=== PATIENT | female | born 1965 | race Caucasian/White ===

== ENCOUNTER → 2017-12-07 07:38 | Outpatient (CLI) | payer MEDICAID ==
[~2017-12-07] VITALS: Ht 165.1 cm; Wt 69.1 kg
--- NOTE | ~2017-12-07 | OP ---
PATIENT NAME: CATHERINE DHALIWAL MEDICAL RECORD: [id number] :61 LOCATION:D.CAT ADMISSION DATE: SURGEON: MARCELL JOHNSON MD DATE OF OPERATION: 12/07/2017 PROCEDURES: 1. PTCA and stent of LAD. 2. Left heart catheterization. 3. Selective coronary angiography. 4. Left ventriculogram. INDICATION: Angina and coronary artery disease. PROCEDURE IN DETAIL: After informed consent was obtained and after detailed explanation of risks, benefits as well as alternative therapies, the patient elected to proceed with angiogram and angioplasty. The right femoral area was prepped and draped in normal sterile fashion. The right femoral artery was cannulated via modified Seldinger technique with placement of 6-[place] Zealander sheath. All catheters exchanged through this sheath. FINDINGS: The left ventriculogram was performed in standard 30-degree LYONS view, reveals good cardiac wall motion throughout all segments. Overall ejection fraction estimated 60%. SELECTIVE CORONARY ANGIOGRAPHY: 1. Left main showed no significant angiographic disease. 2. Left anterior descending has 80% stenosis proximally. 3. Left circumflex has mild irregularities, but no flow-limiting stenosis. 4. Right coronary has mild irregularities, but no flow-limiting stenosis. PTCA AND STENT OF THE LAD: The stent used was a 2.25 x 8 mm Jeison. Result was 0% residual stenosis. OVERALL IMPRESSION: Successful PTCA and stent of the LAD going from 80% initial stenosis to 0% residual. TRANSINT:[id number] Voice Confirmation ID: [id number] DOCUMENT ID: [id number] MARCELL JOHNSON MD at 1202 CC: [id number] DICTATION DATE: 12/07/17 1121 SURGICAL TECH: 12/07/17 1225 DEP CLI 12/07/17 [place] [id number]
--- NOTE | ~2017-12-07 | HEMODYNAMI ---
PATIENT:CATHERINE DHLAIWAL MEDICAL RECORD: [id number] : 61 LOCATION:[facility]ANIELL[facility] ADMISSION DATE: 12/07/17 Generatedon:12/07/201711:28 Patient name: CATHERINE DHALIWAL Patient #: [id number] SSN: : 1965 Date of study: 12/07/2017 Page: Of Hemodynamic Procedure Report Patient Data Patient Demographics Procedure consent was obtained First Name: CATHERINE Gender: Female Last Name: ISRA : 1965 Patient #: [id number] Age: 52 year(s) Race: Unknown Additional ID: [id number] Contact details [address]: [address] [place] [address] State: [place] City: [place] Zip code: [address] Past Medical History Allergies Allergen Reaction Date Comments Reported Other allergy 12/07/2017 latex Admission Admission Data Admission Date: 12/07/2017 Admission Time: 7:38 Admit Source: Other Procedure Procedure Types Cath Procedure Diagnostic Procedure LHC LHC w/Coronaries PCI Procedure Coronary Stent Coronary Stent Initial Procedure Description Procedure Date Procedure Date: 12/07/2017 Procedure Start Time: 10:54 Procedure End Time: 11:28 Procedure Staff Name Function Mayank Hickey MD Performing Physician Ilya Gates RT Monitor Jordan Waldrop RT Scrub Antonio Bains RN Nurse Procedure Data Cath Procedure Fluoroscopy Diagnostic fluoroscopy Total fluoroscopy Time: 5 time: 5 min min Diagnostic fluoroscopy Total fluoroscopy dose: 237 dose: 237 mGy mGy Contrast Material Contrast Material Type Amount (ml) Isovue 300 71 Entry Location Entry Primary Successful Side Size Upsize Upsize Entry Closure Succes sful Closure Location (Fr) 1 (Fr) 2 (Fr) Remarks Device Remarks Femoral Right 5 Fr vein Femoral Right 5 Fr 6 Fr Exoseal artery Short Estimated blood loss: 10 ml Diagnostic catheters Device Type Used For End Catheter Placement MULTIPACK Pigtail 5 Fr Procedure catheter MULTIPACK JL 4.0 5Fr Procedure catheter MULTIPACK 3DRC 5Fr Procedure catheter Procedure Complications No complications Procedure Medications Medication Administration Route Dosage Oxygen NC 2 l/min Heparin Flush Bag added to field 2 bags (1000units/500ml NS) 0.9% NaCl I.V. 100 ml/hr Fentanyl I.V. 50 mcg Versed I.V. 1 mg Fentanyl I.V. 50 mcg Versed I.V. 1 mg Heparin Bolus I.V. 4000 units Benadryl I.V. 50 mg Hemodynamics Rest Heart Rate: 63 (bpm) Snapshots Pre Cath Intra NCS Post Cath Vital Signs Time Heart Resp SPO2 etCO2 NIBP (mmHg) Rhythm Pain Sedation Rate (ipm) (%) (mmHg) Status Level (bpm) 10:51:17 72 15 99 0 148/84(119) NSR 0 (11) 10(A) , No pain 10:55:41 71 18 98 0 131/79(114) NSR 0 (11) 10(A) , No pain 11:00:01 67 18 100 41.6 128/87(102) NSR 0 (11) 10(A) , No pain 11:04:17 73 17 100 34 138/90(114) NSR 0 (11) 10(A) , No pain 11:08:40 80 16 100 0 140/88(113) NSR 0 (11) 9(A) , No pain 11:13:02 83 16 100 0 146/86(120) NSR 0 (11) 9(A) , No pain 11:17:18 84 15 100 0 136/88(111) NSR 0 (11) 9(A) , No pain 11:21:38 83 16 100 0 134/89(107) NSR 0 (11) 9(A) , No pain 11:25:58 74 16 100 12.8 139/88(109) NSR 0 (11) 9(A) , No pain Medications Time Medication Route Dose Verified Delivered Reason Notes Effectiveness by by 10:58:45 Oxygen NC 2 Mayank Alvarez Per physician l/min Ruperto Bains RN 10:58:54 Heparin Flush added 2 Mayank Alvarez used for Bag to bags Ruperto Bains freight router (1000units/500ml field NS) 11:04:19 0.9% NaCl I.V. 100 Mayank Alvarez Per physician ml/hr Ruperto Bains RN 11:04:26 Fentanyl I.V. 50 Mayank Alvarez for sedation mcg Ruperto Bains RN 11:04:35 Benadryl I.V. 50 mg Mayank Alvarez Per physician Ruperto Bains RN 11:04:50 Versed I.V. 1 mg Mayank Alvarez for sedation Ruperto Bains RN 11:11:39 Fentanyl I.V. 50 Mayank Alvarez for sedation [facility] [place] Ruperto Bains RN 11:11:44 Versed I.V. 1 mg Mayank Alvarez for sedation Ruperto Bains RN 11:11:54 Heparin Bolus I.V. 4000 Mayank Alvarez for units Ruperto Bains RN anticoagulation Procedure Log Time Note 10:13:39 Jordan Waldrop RT(R) sent for patient. Start room use. 10:18:18 Informed consent obtained and on chart 10:18:20 Admit Source: Other 10:18:38 Diagnostic Cath status Elective 10:18:40 Time tracking: Regular hours 10:18:43 Plan of Care:Hemodynamics will remain stable., Cardiac rhythm will remain stable., Comfort level will be maintained., Respiratory function will remain adequate., Patient/ family verbilizes understanding of procedure., Procedure tolerated without complication., Recovers from procedure without complications.. 10:28:42 Patient received from Pre/Post Procedure Room to CCL 3 Alert and oriented. Tansferred to table in Supine position. 10:28:43 Warm blankets applied, and amarilis hugger turned on for patient comfort. 10:28:43 Correct patient and procedure confirmed by team. 10:28:44 ECG and BP/O2 sat monitors applied to patient. 10:28:46 Pre-procedure instructions explained to patient. 10:28:47 Pre-op teaching completed and patient verbalized understanding. 10:28:48 Family in waiting room. 10:28:49 Patient NPO since Midnight. 10:28:57 Patient allergic to Other allergylatex 10:28:59 Is the patient allergic to Iodine/contrast media? No. 10:29:00 Is patient on blood thinner?Yes 10:29:02 ACC The patient was administered the following blood thiners within the last 24 hours: ACCPlavix 10:29:04 Patient diabetic? No. 10:29:07 Previous problem with sedation/anesthesia? No ? 10:29:07 Snore? Yes 10:29:08 Sleep apnea? No 10:29:10 Deviated septum? No 10:29:10 Opens mouth fully? Yes 10:29:11 Sticks out tongue? Yes 10:29:12 Airway obstruction? No ? 10:29:17 Dentures? Yes partial in tight 10:49:18 Pre procedure: right dorsailis pedis pulse 1+ Palpable, but thready & weak; easily obliterated 10:49:22 Patient pain scale 0/10 ?. 10:49:56 Vital chart was started 10:50:38 Unable to gain IV access, Dr Hickey is going to start access is right femoral vein for IV acess. 10:50:48 Lab results completed and on chart. 10:50:52 Right groin area was prepped with chlora-prep and draped in sterile fashion 10:50:53 Alarms reviewed by R. N. 10:50:54 Sharps counted by scrub and verified by R.N. 10:50:55 --------ALL STOP TIME OUT------ 10:50:55 Final Timeout: patient, procedure, and site verified with staff and physician. All members of the team are in agreement. 10:50:59 Right groin site verified by team. 10:51:01 Physical assessment completed. ASA score P 2 - A patient with mild systemic disease as per Mayank Hickey MD. 10:51:04 Sedation plan: IV Moderate Sedation Medication:Versed, Fentanyl 10:53:12 Baseline sample Acquired. 10:53:16 Rhythm: sinus rhythm 10:53:17 Full Disclosure recording started 10:53:31 H&P Date Dictated: 11/29/2017 Within 30 days and on chart., H&P Addendum completed by physician on day of procedure. (MUST COMPLETE FOR ALL OUTPATIENTS). 10:54:09 Procedure started. 10:54:13 Local anesthetic to right femoral artery with Lidocaine 1% by Mayank Hickey MD.INITIAL ACCESS ONLY 10:54:57 Use device set Femoral Dx 10:55:00 Tegaderm 4 x 4 (1626W) opened to sterile field. 10:55:01 ACIST Manifold (76305) opened to sterile field. 10:55:02 ACIST Hand Control (13839) opened to sterile field. 10:55:04 ACIST Syringe (07716) opened to sterile field. 10:55:04 Bag Decanter (2002S) opened to sterile field. 10:55:04 Medline Cath Pack ([id number]) opened to sterile field. 10:55:20 SHEATH 5FR Luther (FLC996) opened to sterile field. 10:55:21 DIAGNOSTIC WIRE .035 260cm J wire (394997) opened to sterile field. 10:55:22 DIAGNOSTIC Multipack 5Fr catheter set (AI1330) opened to sterile field. 10:55:23 PERCUTANEOUS ENTRY 19GA needle opened to sterile field. 10:55:35 SHEATH 5FR Luther (VQF817) opened to sterile field. 10:55:36 MAGIC TORQUE 180cm 0.035 wire ([id number]) opened to sterile field. 10:56:04 Magic Torque wire used to help gain access. 10:56:13 IV Extension Set opened to sterile field. 10:56:13 IV Extension Set opened to sterile field. 10:56:21 TORQUE DEVICE PLASTIC .038 ( TD01) opened to sterile field. 10:58:45 Oxygen 2 l/min NC was administered by Antonio Bains RN; Per physician; 10:58:54 Heparin Flush Bag (1000units/500ml NS) 2 bags added to field was administered by Antonio Bains RN; used for procedure; 11:01:14 A 5 Fr sheath was inserted into the Right Femoral vein 11:04:19 0.9% NaCl 100 ml/hr I.V. was administered by Antonio Bains RN; Per physician; 11:04:26 Fentanyl 50 mcg I.V. was administered by Antonio Bains RN; for sedation; 11:04:35 Benadryl 50 mg I.V. was administered by Antonio Bains RN; Per physician; 11:04:50 Versed 1 mg I.V. was administered by Antonio Bains RN; for sedation; 11:06:20 A 5 Fr sheath was inserted into the Right Femoral artery 11:06:33 A MULTIPACK Pigtail 5 Fr catheter was advanced over the wire and used for Procedure. 11:07:16 LV angiography performed. 11:07:18 LV gram done using LYONS 11:07:27 EF : 60 % 11:07:34 Injector settings: Ml/sec: 7, Volume: 15, 11:07:37 Catheter removed. 11:07:42 A MULTIPACK JL 4.0 5Fr catheter was advanced over the wire and used for Procedure. 11:08:08 LCA angiography performed. 11:08:15 Catheter removed. 11:08:20 A MULTIPACK 3DRC 5Fr catheter was advanced over the wire and used for Procedure. 11:09:24 RCA angiography performed. 11:09:30 Catheter removed. 11:09:43 Use device set [facility] PCI 11:09:51 CHOICE PT Extra Support 182cm wire ([id number]) opened to sterile field. 11:09:56 SHEATH 6FR Luther (YGB892) opened to sterile field. 11:09:57 INFLATOR Merit BasixCompak (UV7441) opened to sterile field. 11:10:25 Sheath upsized to a 6 Fr Short. 11:10:44 6 Fr XBLAD 3.5 guide catheter was inserted over the wire 11:10:56 GUIDE 6FR XBLAD 3.5 catheter ([id number]) opened to sterile field. 11:11:39 Fentanyl 50 mcg I.V. was administered by Antonio Bains RN; for sedation; 11:11:44 Versed 1 mg I.V. was administered by Antonio Bains RN; for sedation; 11:11:45 Choice PT XS wire advanced. 11:11:54 Heparin Bolus 4000 units I.V. was administered by Antonio Bains RN; for anticoagulation; 11:12:41 Wire advanced across lesion. 11:12:55 Inflation Number: 1 A JERONIMO RX 2.25 x 08 stent ([id number]) was prepped and advanced across the Mid LAD. The stent was deployed at 15 CHLOE for 0:10 (min:sec). 11:13:40 Stent catheter was removed intact over wire. 11:13:41 Wire removed. 11:13:41 Guide catheter removed. 11:13:46 EXOSEAL 6Fr (EX600) opened to sterile field. 11:14:07 Sheath removed intact; hemostasis achieved with Exoseal to the Right Femoral artery. 11:14:09 Procedure ended.(Physican Out) 11:15:15 Tegaderm 4 x 4 (1626W) opened to sterile field. 11:15:53 Fluoroscopy time 05.00 minutes. :15:59 Fluoroscopy dose: 237 mGy 11:15:59 Flurop Dose total: 237 11:16:05 Contrast amount:Isovue 300 71ml. 11:16:06 Sharps counted by scrub and verified by R.N. 11:18:30 Insertion/operative site no bleeding no hematoma. 11:19:23 Right Femoral Vein sheath tegardermed for IV access. 11:19:26 Post Procedure Pulses reassessed and unchanged 11:19:33 Post-procedure physical assessment completed. ASA score P 2 - A patient with mild systemic disease as per Mayank iHckey MD. 11:19:36 Post procedure rhythm: unchanged. 11:19:38 Estimated blood loss: 10 ml 11:19:40 Post procedure instruction explained to patient.Patient verbalizes understanding. 11:19:40 Patient needs reinforcement of post procedure teaching. 11:19:48 Procedure type changed to Cath procedure, Diagnostic procedure, LHC, LHC w/Coronaries, PCI procedure, Coronary Stent, Coronary Stent Initial 11:19:52 Procedure Complication : No complications 11:20:28 Procedure and supply charges have been captured, reviewed, submitted and are correct. 11:27:57 Vital chart was stopped 11:27:58 See physician's report for complete and final results. 11:28:10 Report given to Pre/Post Procedure Room. 11:28:13 Patient transfered to Pre/Post Procedure Room with Stretcher. 11:28:16 Procedure ended. 11:28:16 Full Disclosure recording stopped 11:28:24 End room use (Document Last) Intervention Summary Intervention Notes Time ActionType Lesion and Equipment Used Action# Pressure Duration Attributes 11:12:55 Place stent Mid LAD JERONIMO RX 2.25 x 1 15 00:10 08 stent ([id number]) Device Usage Item Name Manufacture Quantity Catalog Number Hospital Part Current M inimal Lot# / Charge Number Stock Stock Serial# Code Tegaderm 4 x 4 3M 2 1626W [id number] 964029 271507 5 (1626W) ACIST Manifold Acist 1 00833 449887 995888 878407 5 (68829) Medical Systems Inc ACIST Hand Acist 1 52104 757447 133766 284962 5 Control Medical (51669) Systems Inc ACIST Syringe Acist 1 49482 601802 586276 979465 2 0 (12545) Medical Systems Inc Bag Decanter Microtek 1 2002S 288630 62574 367296 5 (2001S) Medical Inc. Medline Cath Cardinal 1 [id number] 292099 17982 075349 5 Pack Health ([id number]) SHEATH 5FR Terumo 2 HHF130 429630 238283 465730 4 0 Luther (ROK568) DIAGNOSTIC [facility] 1 999947 690838 087476 305878 3 0 WIRE .035 260cm J wire (539225) DIAGNOSTIC Cardinal 1 KX7314 841436 96414 667307 3 0 Multipack 5Fr Health catheter set (MP1271) PERCUTANEOUS Cook Medical 1 Y38949 062410 092810 5 ENTRY 19GA needle MAGIC TORQUE [place] 1 [id number] 116855 518446 331486 1 180cm 0.035 Scientific wire ([id number]) IV Extension Hospira 2 97620-37 346692 17388 737137 5 Set TORQUE DEVICE [place] 1 TD01 791130 434968 080192 5 PLASTIC .038 ( Scientific TD01) MULTIPACK Cardinal 1 802562 5 Pigtail 5 Fr Health catheter MULTIPACK JL Cardinal 1 886815 5 4.0 5Fr Health catheter MULTIPACK 3DRC Cardinal 1 993610 5 5Fr catheter Health CHOICE PT [place] 1 [id number] 947747 053969 838715 5 Extra Support Scientific 182cm wire ([id number]) SHEATH 6FR Terumo 1 GZO376 485524 785226 172457 4 0 Luther (NIG952) INFLATOR Merit Merit 1 OO8866 438031 362755 425642 1 5 [facility] (PN3976) GUIDE 6FR Cardinal 1 [id number] 909991 006400 687492 1 0 XBLAD 3.5 Health catheter (49243778) JERONIMO RX 2.25 x Medtronic 1 [id number] 983064 5638225 174138 5 [id number] 08 stent ([id number]) EXOSEAL 6Fr Cardinal 1 EX600 934496 794235 273204 1 0 (EX600) Health Signature Audit [place] Stage Time Signature Unsigned Intra-Procedure 12/07/2017 Ilya Gates 11:28:50 AM RT(R) Signatures Monitor : Ilya Gates RT Signature : Date : Time : [address] [place] [address]
[~2017-12-07 07:38] MED LIST: AMBIEN10 MG PO; BAYER CHEWABLE81 MG PO; FUROSEMIDE20 MG PO; LOSARTAN POTASS25 MG PO; LYRICA75 MG PO; METOPROLOL TAR100 M1 PO; NITROSTAT0.4 MG SL; PLAVIX75 MG PO
[2017-12-07 08:17] VITALS: BP 143/86; Ht 165.1 cm; Wt 69.1 kg
[2017-12-07 09:01] LABS: BASOPHILS 0.3 % (0-2); EOSINOPHILS 2.8 % (0-7); HEMATOCRIT 43.2 % (36.0-48.0); HEMOGLOBIN 13.7 g/dL (12-16); IMMATURE GRANULOCYTES 0.7 % (0-5); LYMPHOCYTES 43.5 % (15-50); MCH 30.3 pg (26.0-34.0); MCHC 31.7 g/dL (31.0-37.0); MCV 95.6 fL (80.0-100.0); MEAN PLATELET VOLUME 9.6 fL (7.4-10.4); MONOCYTES 8.1 % (2-11); NEUTROPHILS 44.6 % (40-80); PLATELET COUNT 117 10x3/uL (130-400); RBC 4.52 10x6/uL (4.00-5.40); RDW 14.5 % (11.5-14.5)
[2017-12-07 09:14] LABS: ANION GAP 12.6 mmol/L (8-16); CALCIUM 9.1 mg/dL (8.5-10.1); CARBON DIOXIDE 24.4 mmol/L (21.0-32.0); CREATININE - SERUM 0.9 mg/dL (0.6-1.3)
== END | disposition home or self-care (01) ==
LOC: D.CATH 07:38
PROVIDERS: Internal Medicine Interventional Cardiology
DX: I25.119 Atherosclerotic heart disease of native coronary artery with unspecified angina pectoris (principal); I10 Essential (primary) hypertension; Z01.812 Encounter for preprocedural laboratory examination
CPT/HCPCS: 93458; C9600

== ENCOUNTER 2019-07-16 12:10 | Observation (INO) | payer MEDICAID ==
[~2019-07-16] VITALS: Ht 165.1 cm; Wt 70.5 kg
[2019-07-16] VITALS (7 sets, daily range): BP systolic 120–157; BP diastolic 54–87; Ht 165.1 cm; Wt 70.5 kg
--- NOTE | ~2019-07-16 | HEMODYNAMI ---
PATIENT:CATHERINE DHALIWAL MEDICAL RECORD: [id number] : 61 LOCATION:[facility] D.2117 ADMISSION DATE: 07/16/19 Generatedon:07/18/20199:23 Patient name: CATHERINE DHALIWAL Patient #: [id number] SSN: [id number] : 1965 Date of study: 07/17/2019 Page: Of Hemodynamic Procedure Report Patient Data Patient Demographics Procedure consent was obtained First Name: CATHERINE Gender: Female Last Name: ISRA : 1965 Patient #: [id number] Age: 54 year(s) Race: SSN: [id number] Additional ID: [id number] Contact details [address]: [address] [place] [address] State: [place] City: [place] Zip code: [address] Past Medical History Allergies Allergen Reaction Date Comments Reported Other allergy 12/07/2017 latex Other allergy 07/17/2019 no know allergies Admission Admission Data Admission Date: 07/16/2019 Admission Time: 12:19 Arrival Date: 07/17/2019 Arrival Time: 0:00 Room #: D.2117 Insurance Payor: Medicaid [facility] #: [id number] Height (in.): 64.96 BSA: 1.77 (m2) Height (cm.): 165 BMI: 25.71 (kg/m2) Weight (lbs.): 154.32 Weight (kg.): 70 Lab Results Lab Result Date: 07/17/2019 Lab Result Time: 0:00 Biochemistry Name Units Result Min Max BUN mg/dl 10 --(-*--)-- 7 18 CK-MB ng/ml 0.5 --(*---)-- 0 3.6 Creatinine mg/dl 1 --(--*-)-- 0.6 1.3 eGFR ml/min 61.02876 *-(----)-- 90 120 NONAFRICAN Troponin I ng/ml 0.02 --(-*--)-- 0 0.06 Troponin l ng/ml 0.017 --(-*--)-- 0 0.06 CBC Name Units Result Min Max Hemoglobin g/dl 14 --(*---)-- 13.5 17.5 Procedure Procedure Types Cath Procedure Diagnostic Procedure [facility] w/Coronaries FFR/IVUS FFR Initial Sedation Charges Moderate Sedation up to 15 minutes Procedure Description Procedure Date Procedure Date: 07/17/2019 Procedure Start Time: 9:27 Procedure End Time: 9:45 Procedure Staff Name Function Mayank Hickey MD Performing Physician Sabine Mohan RT Monitor Suyl Hernandez RT Monitor Mary Bejarano RN Nurse Osiris Alfaro RT Scrub Indication Unstable angina Procedure Data Cath Procedure Fluoroscopy Diagnostic fluoroscopy Total fluoroscopy Time: 0 time: 0 min min Diagnostic fluoroscopy Total fluoroscopy dose: 566 dose: 566 mGy mGy Contrast Material Contrast Material Type Amount (ml) Isovue 300 73 Entry Location Entry Primary Successful Side Size Upsize Upsize Entry Closure Succes sful Closure Location (Fr) 1 (Fr) 2 (Fr) Remarks Device Remarks Femoral Right 5 Fr 6 Fr Exoseal artery Short Estimated blood loss: 5 ml Diagnostic catheters Device Type Used For End Catheter Placement MULTIPACK Pigtail 5 Fr LV Angiography catheter MULTIPACK JL 4.0 5Fr Left Coronary catheter Angiography MULTIPACK 3DRC 5Fr Right Coronary catheter Angiography Procedure Complications No complications Procedure Medications Medication Administration Route Dosage 0.9% NaCl I.V. 100 ml/hr Oxygen etCO2 Nasal cannula 2 l/min Lidocaine 2% added to field 20 Heparin Flush Bag added to field 2 bags (1000units/500ml NS) Versed I.V. 2 mg Fentanyl I.V. 50 mcg Fentanyl I.V. 50 mcg Hemodynamics Rest HGB: 14 (g/dl) O2 Consumption: Estimated: 157.48 (ml/min) O2 Consumption indexed : Estimated:88.97 (ml/min/m) Heart Rate: 51 (bpm) Snapshots Pre Cath Intra NCS Post Cath Vital Signs Time Heart Resp SPO2 etCO2 NIBP (mmHg) Rhythm Pain Sedation Rate (ipm) (%) (mmHg) Status Level (bpm) 9:12:55 51 16 100 34.6 Measuring SB 0 (11) 10(A) , No pain 9:13:18 57 19 100 20.3 178/86(138) SB 0 (11) 10(A) , No pain 9:17:44 59 16 100 35.3 146/79(123) SB 0 (11) 10(A) , No pain 9:22:12 57 14 100 24.8 151/78(126) SB 0 (11) 10(A) , No pain 9:26:36 55 19 100 27.8 141/79(112) SB 0 (11) 10(A) , No pain 9:31:03 56 17 99 33.1 156/79(126) SB 0 (11) 9(A) , No pain 9:36:02 65 14 100 19.5 Measuring SB 0 (11) 9(A) , No pain 9:36:16 68 13 100 16.5 160/91(129) SB 0 (11) 9(A) , No pain 9:40:49 53 13 100 19 162/78(136) SB 0 (11) 10(A) , No pain 9:45:13 54 18 100 11.3 156/85(138) SB 0 (11) 10(A) , No pain Medications Time Medication Route Dose Verified Delivered Reason Notes Effe ctiveness by by 9:12:55 0.9% NaCl I.V. 100 Mayank Mary used for ml/hr Ruperto Bejarano white sugar supervisor 9:13:01 Oxygen etCO2 2 Mayank Mary used for Nasal l/min Ruperto Bejarano procedure cannula RN 9:13:07 Lidocaine 2% added 20ml Mayank Mayank for local to vial Ruperto Hickey MD anesthetic field 9:13:11 Heparin Flush added 2 Mayank Mayank used for Bag to bags Ruperto Hickey MD procedure (1000units/500ml field NS) 9:24:05 Fentanyl I.V. 50 Mayank Mary for mcg Ruperto Bejarano sedation RN 9:24:51 Versed I.V. 2 mg Mayank Mary for Ruperto Bejarano sedation RN 9:29:18 Fentanyl I.V. 50 Mayank Mary for mcg Ruperto Bejarano sedation contract negotiator Log Time Note 8:38:37 Informed consent obtained and on chart 8:45:49 Arrival Date: 07/17/2019 12:00:00 AM 8:46:06 Insurance Payor : Medicaid 8:46:12 Patient Height : 64.96 inches 8:46:19 Patient Weight : 154.32 lbs 8:46:44 Diagnostic Cath Status : Urgent 8:47:25 Indication : Unstable angina 8:47:26 Mary Bejarano RN sent for patient. Start room use. 8:47:35 ACC Patient presents with Unstable Angina CCS Anginal Class 4--Inability to carry out any physical activity w/o angina. Angina may occur at rest. 8:48:33 ACCPatient has been prescribed/administered the following anti-anginal medication within the last 2 weeks: None 8:48:38 Procedure Status Urgent Heart Cath (IP). 8:50:04 Lab Result : Troponin T 0.02 ng/ml 8:50:04 Lab Result : eGFR NONAFRICAN 61.54793 ml/min 8:50:04 Lab Result : Hemoglobin 14 g/dl 8:50:04 Lab Result : Troponin l 0.017 ng/ml 8:50:04 Lab Result : BUN 10 mg/dl 8:50:04 Lab Result : Creatinine 1 mg/dl 8:50:04 Lab Result : CK-MB 0.5 ng/ml 8:53:54 Risk of Mortality: 2.0 8:54:01 Risk of blood transfusion: 2.2 8:54:08 Risk of SHALONDA: 0.8 9:02:59 Patient received from Med II to CCL 1 Alert and oriented. Tansferred to table in Supine position. 9:03:00 Correct patient and procedure confirmed by team. 9:03:00 Warm blankets applied, and amarilis hugger turned on for patient comfort. 9:03:01 ECG and BP/O2 sat monitors applied to patient. 9:10:53 Time tracking: Regular hours (M-F 7:00 - 5:00) 9:11:01 Plan of Care:Hemodynamics will remain stable., Cardiac rhythm will remain stable., Comfort level will be maintained., Respiratory function will remain adequate., Patient/ family verbilizes understanding of procedure., Procedure tolerated without complication., Recovers from procedure without complications.. 9:11:05 Vital chart was started 9:11:07 Baseline sample Acquired. 9:11:20 Rhythm: sinus bradycardia 9:11:22 Full Disclosure recording started 9:11:23 9:11:29 H&P Date Dictated: 07/17/2019 Within 30 days and on chart.. 9:11:31 Pre-procedure instructions explained to patient. 9:11:32 Pre-op teaching completed and patient verbalized understanding. 9:11:34 Family in patients room. 9:11:36 Patient NPO since Midnight. 9:12:12 Patient allergic to Other allergyno know allergies 9:12:20 Is the patient allergic to Iodine/contrast media? No. 9:12:23 Was the patient premedicated? Yes 9:12:26 Is patient on blood thinner?Yes 9:12:38 ACC The patient was administered the following blood thiners within the last 24 hours: ACCPlavix 9:12:43 Patient diabetic? No. 9:12:53 Patient not . Patient is over age 55. 9:12:55 ----Pre-sedation anethsthesia assessment.---- 9:12:55 0.9% NaCl 100 ml/hr I.V. was administered by Mary Bejarano RN; used for procedure; Verbal order read back and verified. 9:12:59 Previous problem with sedation/anesthesia? No ? 9:13:01 Oxygen 2 l/min etCO2 Nasal cannula was administered by Mary Bejarano RN; used for procedure; Verbal order read back and verified. 9:13:03 Snore? Yes 9:13:06 Sleep apnea? No 9:13:07 Lidocaine 2% 20ml vial added to field was administered by Mayank Hickey MD; for local anesthetic; Verbal order read back and verified. 9:13:09 Deviated septum? No 9:13:11 Heparin Flush Bag (1000units/500ml NS) 2 bags added to field was administered by Mayank Hickey MD; used for procedure; Verbal order read back and verified. 9:13:12 Opens mouth fully? Yes 9:13:16 Sticks out tongue? Yes 9:13:21 Airway obstruction? No ? 9:13:28 Dentures? Yes ? 9:13:49 Dentures? Yes in tight 9:14:01 Pre procedure: right dorsailis pedis pulse 1+ Palpable, but thready & weak; easily obliterated 9:14:12 Patient pain scale 3/10 ?. 9:14:37 IV patent on arrival in Left upper arm with 0.9% NaCl at O. 9:14:47 Lab results completed and on chart. 9:14:54 Right groin area was prepped with chlora-prep and draped in sterile fashion 9:14:57 Alarms reviewed by R. N. 9:14:58 Sharps counted by scrub and verified by R.N. 9:20:53 Zero performed for pressure channel P1 9:22:01 Use device set Femoral Dx 9:22:03 ACIST Syringe (49128) opened to sterile field. 9:22:04 Bag Decanter (2002S) opened to sterile field. 9:22:06 Medline Cath Pack ([id number]) opened to sterile field. 9:22:08 ACIST Hand Control (31917) opened to sterile field. 9:22:09 ACIST Manifold (55943) opened to sterile field. 9:22:12 DIAGNOSTIC Multipack 5Fr catheter set (BC0979) opened to sterile field. 9:22:13 Tegaderm 4 x 4 (1626W) opened to sterile field. 9:22:15 SHEATH 5FR Cowpens (DFP999) opened to sterile field. 9:22:16 EMERALD Guide Wire (665-578) opened to sterile field. 9:22:45 Physician arrived 9::47 --------ALL STOP TIME OUT------ 9:22:50 Final Timeout: patient, procedure, and site verified with staff and physician. All members of the team are in agreement. 9:23:05 Right groin site verified by team. 9:23:14 Fire Safety Assessment: A--An alcohol-based skin anteseptic being used preoperatively., C--Open oxygen or nitrous oxide is being used., D--An ESU, laser, or fiber-optic light is being used. 9:23:19 Physical assessment completed. ASA score P 2 - A patient with mild systemic disease as per Mayank Hickey MD. 9:23:30 2) 60-89 Mildly reduced kidney function, and other findings (as for stage 1) point to kidney disease. 9:24:05 Fentanyl 50 mcg I.V. was administered by Mary Bejarano RN; for sedation; Verbal order read back and verified. 9:24:44 Maximum allowable contrast dose (3.7 X eGFR X 0.75)170 ml. 9:24:51 Versed 2 mg I.V. was administered by Mary Bejarano RN; for sedation; Verbal order read back and verified. 9:24:53 Sedation plan: IV Moderate Sedation Medication:Versed, Fentanyl 9::33 Procedure started. 9:27:39 Local anesthetic to right femoral artery with Lidocaine 2% by Mayank Hickey MD.INITIAL ACCESS ONLY 9:28:23 A 5 Fr sheath was inserted into the Right Femoral artery 9:29:18 Fentanyl 50 mcg I.V. was administered by Mary Bejarano RN; for sedation; Verbal order read back and verified. 9:29:24 A MULTIPACK Pigtail 5 Fr catheter was advanced over the wire and used for LV Angiography. 9:29:27 LV gram done using LYONS 9::33 Injector settings: Ml/sec: 10, Volume: 20, 9:29:45 EF : 50 % 9:29:49 Catheter removed. 9:30:03 A MULTIPACK JL 4.0 5Fr catheter was advanced over the wire and used for Left Coronary Angiography. 9:30:41 LCA angiography performed. 9:31:33 Catheter removed. 9:31:39 A MULTIPACK 3DRC 5Fr catheter was advanced over the wire and used for Right Coronary Angiography. 9:32:24 RCA angiography performed. 9:32:27 ACCDominant side:Right 9:34:57 SHEATH 6FR Cowpens (KDJ117) opened to sterile field. 9:35:12 INFLATOR Merit BasixCompak (QP8211) opened to sterile field. 9:35:26 Seaboard Verrata Plus pressure wire (40064K) opened to sterile field. 9:36:06 Sheath upsized to a 6 Fr Short. 9:36:18 GUIDE 6FR 3DRC catheter ([id number]) opened to sterile field. 9:36:42 6 Fr 3drc guide catheter was inserted over the wire 9:36:57 FFR/IFR wire advanced. 9:38:48 Wire advanced across lesion. 9:39:15 mRCA lesion measured at 0.95 with IFR 9:39:34 EXOSEAL 6Fr (EX600) opened to sterile field. 9:39:50 Guide catheter removed. 9:39:50 Wire removed. 9:40:24 Sheath removed intact; hemostasis achieved with Exoseal to the Right Femoral artery. 9:40:28 Procedure ended.(Physican Out) 9:40:56 Contrast amount:Isovue 300 73ml. 9:41:14 Fluoroscopy time 00.00 minutes. 9:41:21 Fluoroscopy dose: 566 mGy 9:41:21 Flurop Dose total: 566 9:41:31 Dose Area Product 58640 mGy/cm. 9:41:36 Maximum allowable dose exceeded? No. 9:41:37 Sharps counted by scrub and verified by R.N. 9:41:41 Insertion/operative site no bleeding no hematoma. 9:41:45 Post-op/insertion site Right Femoral artery dressed using a 4 x 4 and Tegaderm. 9:41:51 Post right femoral artery:stable 9:41:55 Post Procedure Pulses reassessed and unchanged 9:42:01 Post-procedure physical assessment completed. ASA score P 2 - A patient with mild systemic disease as per Mayank Hickey MD. 9:42:08 Post procedure rhythm: unchanged. 9:42:12 Estimated blood loss: 5 ml 9:42:14 Post procedure instruction explained to patient.Patient verbalizes understanding. 9:42:17 Patient needs reinforcement of post procedure teaching. 9:43:00 Procedure type changed to Cath procedure, Diagnostic procedure, [facility], [facility] w/Coronaries, FFR/IVUS, FFR Initial, Sedation Charges, Moderate Sedation up to 15 minutes 9:43:02 Procedure and supply charges have been captured, reviewed, submitted and are correct. 9:44:35 Procedure Complication : No complications 9:44:39 Vital chart was stopped 9:44:44 [facility] Findings: mild to moderate CAD (<70%) 9:44:51 See physician's report for complete and final results. 9:44:51 Operative report dictated upon procedure completion. 9:44:55 Report given to [facility]. 9:44:58 Patient transfered to [facility] with Bed. 9:45:02 Full Disclosure recording stopped 9:45:02 Procedure ended. 9:45:05 End room use (Document Last) Device Usage Item Name Manufacture Quantity Catalog Hospital Part Current Minima l Lot# / Number Charge Number Stock Stock Serial# Code ACIST Acist 1 35310 985239 856918 195646 20 Syringe Medical (77476) Systems Inc Bag Microtek 1 2001S 177511 65470 080445 5 Decanter Medical Inc. () Medline Medline 1 [id number] 198264 09996 976163 5 Cath Pack ([id number]) ACIST Hand Acist 1 57978 927411 215364 600593 5 Control Medical (25523) Systems Inc ACIST Acist 1 28563 943764 056452 623812 5 Manifold Medical (41831) Systems Inc DIAGNOSTIC Cardinal 1 PM9178 365713 62953 006498 30 Multipack Health 5Fr catheter set (AD3867) Tegaderm 4 3M 1 1626W 159877 193732 485237 5 x 4 (1626W) SHEATH 5FR Terumo 1 YHZ133 948725 016082 034233 5 Cowpens (QAD659) EMERALD Cardinal 1 502-455 647527 680463 821149 5 Guide Wire Health (502-455) MULTIPACK Cardinal 1 808457 5 Pigtail 5 Health Fr catheter MULTIPACK Cardinal 1 479535 5 JL 4.0 5Fr Health catheter MULTIPACK Cardinal 1 279344 5 3DRC 5Fr Health catheter SHEATH 6FR Terumo 1 NYG164 180863 416804 504581 40 Cowpens (PAK964) INFLATOR Merit 1 DB2002 688965 875132 334143 15 [facility] Medical BasixCompak (TL5038) Seaboard Seaboard 1 83785J 203062 420320091 534365 5 Verrata Plus pressure wire (50759A) GUIDE 6FR Medtronic 1 [id number] 109270 960206 238059 1 3DRC catheter (UG75LMD) EXOSEAL 6Fr Cardinal 1 EX600 763138 617685 782668 10 (EX600) Health Signature Audit Miracle Stage Time Signature Unsigned Intra-Procedure 07/17/2019 Sabine 9:45:36 AM Kimberlee RT(R) (CV) Intra-Procedure 07/17/2019 Mary Bejarano 9:46:19 AM RN Intra-Procedure 07/17/2019 Mayank Hickey 9:46:46 AM [facility] [address] [place] [address]
[2019-07-16] MEDS ORDERED: LIPITOR20 MG PO (12:36)
--- NOTE | 2019-07-16 13:29 | NUR ---
REPORT CALLED TO MALAIKA CESAR BY SBAR FORMAT
--- NOTE | 2019-07-16 13:50 | NUR ---
TRANSPORTED TO ROOM #2117, CONDITION STABLE
--- NOTE | 2019-07-16 13:53 | NUR ---
TRANSFERED FROM ER BY STRETCHER. OREINTED TO ROOM. CALL LIGHT IN REACH. WILL CONT. PLAN OF CARE.
--- NOTE | 2019-07-16 15:07 | NUR ---
CONSENTS SIGNED FOR [facility]. WILL CONT. PLAN OF CARE.
--- NOTE | 2019-07-16 19:31 | NUR ---
RECIEVED BEDSIDE SHIFT REPORT. ALERT AND ORIENTED X4. SPOUSE AT BEDSIDE. MIDLINE TO LEFT UPPER ARM SL.. TELEMETRY IN PLACE. DENIES ANY NEEDS AT THIS TIME.
[2019-07-17 04:48] VITALS: BP 158/68
--- NOTE | 2019-07-17 05:05 | NUR ---
BILATERAL GROIN AND WRIST CLIPPED, HIBICLENS BATH COMPLETE.
[2019-07-17 05:42] LABS: APTT 33.2 SECONDS (22.8-39.4); INR 0.97 (0.85-1.17); PROTIME 12.4 SECONDS (11.6-15.0)
[2019-07-17 06:00] LABS: BASOPHILS 0.5 % (0-2); EOSINOPHILS 2.6 % (0-7); HEMATOCRIT 43.1 % (36.0-48.0); IMMATURE GRANULOCYTES 0.2 % (0-5); LYMPHOCYTES 43.2 % (15-50); MCHC 32.5 g/dL (31.0-37.0); MCV 95.4 fL (80.0-100.0); MEAN PLATELET VOLUME 10.1 fL (7.4-10.4); MONOCYTES 5.8 % (2-11); NEUTROPHILS 47.7 % (40-80); RBC 4.52 10x6/uL (4.00-5.40); RDW 13.6 % (11.5-14.5); WBC 6.2 10x3/uL (4.8-10.8)
[2019-07-17 06:01] LABS: PLATELET COUNT 250 10x3/uL (130-400)
[2019-07-17 06:10] LABS: ALBUMIN 3.4 g/dL (3.4-5.0); ALKALINE PHOSPHATASE 89 U/L (46-116); ALT (SGPT) 22 U/L (10-68); BILIRUBIN - TOTAL 0.35 mg/dL (0.2-1.3); CALC OSMOLALITY 277 mosm/kg (275-300); CARBON DIOXIDE 27.9 mmol/L (21.0-32.0); CHLORIDE - SERUM 105 mmol/L (98-107); CKMB 0.5 U/L (0.0-3.6); CREATINE KINASE 33 UL (21-215); GLUCOSE 91 mg/dL (74-106); MAGNESIUM - SERUM 2.1 mg/dL (1.8-2.4); PHOSPHOROUS 4.6 mg/dL (2.5-4.9); POTASSIUM - SERUM 3.7 mmol/L (3.5-5.1); PROTEIN - SERUM 6.6 g/dL (6.4-8.2); SODIUM 140 mmol/L (136-145); THYROID STIMULATING HORMONE 6.42 uIU/mL (0.36-3.74); TROPONIN-I < 0.017 ng/mL (0.000-0.060); UREA NITROGEN 10 mg/dL (7-18); eGFR NON AFRICAN AMERICAN 61 mL/min (90-120)
--- NOTE | 2019-07-17 09:00 | NUR ---
PRE-OPS GIVEN. TO WELL SERVICE FLOORPERSON BY BED.
[2019-07-17 09:04] VITALS: BP 117/56
--- NOTE | 2019-07-17 10:02 | NUR ---
BACK FROM CIRCUIT DESIGNER. VS WNL. RIGHT GROIN STABLE WITHOUT BLEEDING OR HEMATOMA NOTED. WILL MONITOR.
--- NOTE | 2019-07-17 11:04 | NUR ---
UPON ADMIT PATIENT HAS NOT HAD A FLU SHOT. WHEN QUESTIONED IF SHE WANTS ONE, SHE TELLS ME THAT [facility] WILL NOT PAY FOR IT. [facility] IS CHECKING WITH PHARMACY ABOUT THIS. ZEE, PHARMACIST STATES IT WILL PAY FOR IT HERE. ORDERED.
--- NOTE | 2019-07-17 12:00 | NUR ---
BED REST UP, GROIN STABLE.
[2019-07-17] MEDS ORDERED: ALBUTEROL2.5 MG/3 M UPD (12:03)
[2019-07-17] MEDS ORDERED: CARAFATE1 G PO (12:03)
[2019-07-17] MEDS ORDERED: PROTONIX40 MG PO (12:03)
--- NOTE | 2019-07-17 12:52 | NUR ---
NARAYAN DÍAZ NOTIFIED TO SPEAK TO PT AND LINDABUND PRIOR TO DC. NARAYAN DÍAZ CAME OVER AND SPOKE TO THEM, ANSWERING ANY QUESTIONS. IV AND TELEMETRY DCD. DC PLANS GIVEN. UNDERSTANDING VOICED. ESCORTED TO CAR BY W/C.
--- NOTE | 2019-07-18 08:06 | MORECARE ---
CASE MANAGEMENT DISCHARGE SUMMARY PATIENT: CATHERINE DHALIWAL UNIT: [id number] ADM DATE: 07/16/19 AGE: 54 : [birth year] SEX: F ROOM/BED: D.5929 AUTHOR: JESUS ALBERTO WOODARD PHYSICIAN: REFERRING PHYSICIAN: TISHA ABREU MD DATE OF SERVICE: 07/18/19 Discharge Plan Patient Name: CATHERINE DHALIWAL [facility]:[place] : 1965 Planned Disposition: Home Anticipated Discharge Date: 07/17/19 Discharge Date: 07/17/2019 Expected LOS: 1 Initial Reviewer: [email or web address] Initial Review Date: 07/18/2019 Generated: 07/18/19 9:05 am Patient Name: CATHERINE DHALIWAL Page [id number] at 0806 All edits/amendments must be made on the electronic document DICTATION DATE: 07/18/19804 RECOVERY ADVOCATE: WILMAR 07/18/19804 RPT#: [id number] DC DATE:07/17/19 STATUS: DIS IN [facility] [address] [place] [address] END OF REPORT
--- NOTE | 2019-07-24 11:40 | CN ---
PATIENT NAME:CATHERINE DHALIWAL MEDICAL RECORD: [id number] : [birth year] LOCATION:[facility] D.2117 ADMIT DATE: 07/16/19 ACCOUNT: [id number] CONSULTING PHYSICIAN: MARCELL JOHNSON MD REFERRING PHYSICIAN: TISHA ABREU MD DATE OF CONSULTATION: 07/16/2019 CARDIOLOGY CONSULT ADMITTING DIAGNOSES: 1. Unstable angina. 2. Coronary artery disease. 3. Previous percutaneous transluminal coronary angioplasty stent. 4. Hypertension. 5. Hyperlipidemia. 6. Family history of coronary artery disease. HISTORY OF PRESENT ILLNESS: Mrs. Dhaliwal presents with 3 months of increasing angina, increasing dramatically over the past few days. She is having class IV rest pain, it is just like that of her previous angina. Last cardiac stent was in January 2018. Her EKG is with no acute ST-T abnormalities. She continues to have the pain. PHYSICAL EXAMINATION: CONSTITUTIONAL/GENERAL APPEARANCE: Well nourished, well developed, appears stated age. EYES: Lids and conjunctivae noninjected. No discharge. No pallor. ENT: Lips within normal limit. No cyanosis. No pallor. NECK: Carotid arteries, bilateral normal upstroke. No bruits. No thrills. No jugular venous pressure or distention. CERVICAL LYMPH NODES: Nontender. Nonenlarged. THYROID: Not enlarged. No nodules. CARDIOVASCULAR: Precordial exam, nondisplaced. No heaves or pericardial thrills. Rate and rhythm, regular. Heart sounds, normal S1, normal S2. No S3, no gallop, no rub. Systolic murmur, not heard. Diastolic murmur, not heard. RESPIRATORY: Respiratory effort, unlabored. Normal curvature. No thoracic deformity. No chest wall tenderness. Percussion, resonant. Auscultation, clear. No wheezes, no rales, no rhonchi. ABDOMEN: Soft, nondistended, nontender. No abdominal pain, no vomiting and normal appetite. MUSCULOSKELETAL: No joint tenderness, normal gait, normal tone. SKIN: Warm and dry. OVERALL IMPRESSION: Unstable angina class IV in a patient with a past history of coronary artery disease, on aspirin and Plavix with hypertension, hyperlipidemia, family history of coronary artery disease. We will proceed with coronary angiography. Further care depends upon findings of the angiography. TRANSINT:[id number] Voice Confirmation ID: [id number] DOCUMENT ID: [id number] CONSULT REPORT [id number] CATHERINE DHALIWAL, MARCELL ACOSTA at 1140 CC: [id number] DICTATION DATE: 07/16/19 1219 BATH SOLUTION MAKER: 07/16/19 1250 DIS IN 07/17/19 [place] [address] [place] [id number]
--- NOTE | 2019-07-24 11:40 | OP ---
PATIENT NAME: CATHERINE DHALIWAL MEDICAL RECORD: [id number] :[birth year] LOCATION:D.M2 D.2117 ADMISSION DATE:07/16/19 SURGEON: MARCELL JOHNSON MD DATE OF OPERATION: 07/17/2019 PROCEDURES: 1. Left heart catheterization. 2. Selective coronary angiography. 3. Left ventriculogram. 4. IFR. INDICATIONS: Angina, coronary artery disease, previous cardiac stenting, hypertension, hyperlipidemia. PROCEDURE IN DETAIL: After informed consent was obtained and after a detailed explanation of risks, benefits as well as alternative therapies, the patient elected to proceed with angiogram and heart catheterization. The right femoral area was prepped and draped in normal sterile fashion. Right femoral artery was cannulated via modified Seldinger technique with placement of 6-Croatian sheath. All catheters exchanged through this sheath. FINDINGS: Left ventriculogram was performed in standard 30-degree LYONS view, reveals good cardiac wall motion, ejection fraction of 60%. SELECTIVE CORONARY ANGIOGRAPHY: 1. Left main is with no significant angiographic disease. 2. Left anterior descending has previously placed stent. This is widely patent with no significant restenosis. No disease elsewise throughout the LAD or its branches. 3. The left circumflex has mild irregularities, but no flow-limiting stenosis. 4. The right coronary has mild irregularities, but no flow-limiting stenosis. There is a questionable stenosis in the mid vessel; however, IFR was normal at 0.95. OVERALL IMPRESSION: Wide patency of the previously placed stent in the LAD. No disease of significance elsewise. Continue medical management of the coronary artery disease and cardiac risk factors. TRANSINT:[id number] Voice Confirmation ID: [id number] DOCUMENT ID: [id number] MARCELL JOHNSON MD at 1140 CC: [id number] DICTATION DATE: 07/17/19 0943 FOOD SCIENTIST: 07/17/19 1005 DIS IN 07/17/19 [place] [id number] [place] [id number]
== END 2019-07-17 12:54 | disposition home or self-care (01) ==
LOC: D.ER 12:10 → D.M2 12:19 → OBSVTIME 12:52 → D.M2 07-17 12:54
PROVIDERS: Family Medicine; ADMIT Internal Medicine Nephrology; ATTEND Internal Medicine Nephrology
DX: I25.110 Atherosclerotic heart disease of native coronary artery with unstable angina pectoris (principal); I10 Essential (primary) hypertension; Z95.5 Presence of coronary angioplasty implant and graft; Z82.49 Family history of ischemic heart disease and other diseases of the circulatory system